=== PATIENT | male | born 1940 | race Caucasian/White ===

== ENCOUNTER → 2017-08-23 | Outpatient (CLI) | payer MEDICARE ==
[2017-08-23 13:35] LABS: Blood Urea Nitrogen 25 mg/dL (9-20)
--- NOTE | 2017-08-23 15:30 | CT ---
EXAMINATION TYPE: CT angio thoracic/abd aorta DATE OF EXAM: 08/23/2017 COMPARISON: NONE HISTORY: Follow up evaluation of aortic aneurysms, ascending and abdominal CT DLP: 937.6 mGycm. Automated Exposure Control for Dose Reduction was Utilized. CONTRAST: CT scan of the thorax, abdomen and pelvis is performed with IV Contrast, patient injected with 100 mL of Isovue 370. 3-D reformats were performed at a separate workstation of the vasculature. FINDINGS: LUNGS: Lung apices are not imaged. The previously seen 3 mm right upper lobe subpleural pulmonary nod ule is no longer present and may have represented atelectasis or pneumonitis. Similarly the previousl y seen 2 mm nodule within the right upper lobe is also no longer present. There is stability of the 3 mm pulmonary nodule on series 8 image 27 within the left lower lobe. No new pulmonary nodules are se en. No focal consolidation is noted. Scattered areas of subsegmental atelectasis are present.. Ther e is no pleural effusion or pneumothorax seen. The tracheobronchial tree is patent. MEDIASTINUM: Aortic root just above the sinotubular junction has enlarged in the interim, now measuri ng 4.4 cm on series 15 image 35 and previously measuring 4.1 cm. Aortic valvular replacement is noted . Ascending thoracic aorta measures slightly less than on the prior exams measuring 4.4 cm currently, possibly due to obliquity as this previously measured up to 4.6 cm on the prior exams of 12/25/2015 an d 03/25/2017. No interval enlargement. There are no greater than 1 cm hilar or mediastinal lymph nodes . No pericardial effusion is seen. Moderate coronary artery calcifications are again noted. Sterno lisette wires are seen. OTHER: No additional significant abnormality is seen. LIVER/GB: Gallbladder is contracted containing numerous gallstones. Liver is demonstrates diffuse hyp oattenuation thickening criteria for mild hepatic steatosis. This limits evaluation for pancreatic ma sses as does the angiographic phase of contrast. Focal hypoattenuated 6 mm hepatic lesion is seen on the border of segment 8 on series 7 image 40. This does not appear to be present on the prior exam. PANCREAS: There is new prominence of the pancreatic head where is the remainder the pancreatic head i nferiorly and uncinate process demonstrate mild atrophy. This is seen on series 7 image 52 and subopt imally evaluated due to angiographic phase of contrast. This prominence measures approximately 3.3 x 3.3 cm and does not result in pancreatic dilatation although there are scattered prominent. Pancreati c lymph nodes. Therefore interval development of findings are concerning for pancreatic mass and furt her evaluation is necessary. SPLEEN: No significant abnormality is seen. ADRENALS: Stable left 8 mm area of nodularity seen within the lateral limb of the left adrenal gland slight nodularity on the right again likely related to adrenal gland hyperplasia without greater than 1 cm nodule. KIDNEYS: Right upper pole renal cyst measures 3.2 cm. Smaller right lower pole renal cyst measures 1 cm. Probable additional too small to accurately characterize right upper pole renal hypoattenuating l esion measures 6 mm. No hydronephrosis. Left kidney is unremarkable. BOWEL: Scattered colonic diverticula are noted. No bowel enlargement. LYMPH NODES: No greater than 1cm abdominal or pelvic lymph nodes are appreciated. OSSEOUS STRUCTURES: Mild multilevel degenerative changes of the thoracolumbar and lumbosacral spine. OTHER: Fusiform infrarenal abdominal aortic aneurysm is unchanged measuring 4.3 x 4.0 x 5.8 cm and an terior posterior by transverse by craniocaudal dimension, previously measuring 4.3 x 4.0 x 5.8 cm. Th ere is no extent into the common iliac arteries as well as the left common iliac artery measures 1.5 cm and the right measures 1.1 cm. There is moderate calcific and noncalcific atheromatous plaquing of the abdominal aorta and its branches. Celiac axis, renal arteries, SMA, and AMY are patent. IMPRESSION: 1. Interval enlargement of the aortic root dilatation now measuring 4.4 cm and previously measuring 4 .1 cm. No interval enlargement of the ascending thoracic aortic aneurysm. 2. Findings concerning for potential underlying new pancreatic head mass with surrounding adenopathy. Further evaluation with dynamic enhanced three-phase CT abdomen (pancreatic mass protocol) or MR is recommended. 3. Stable infrarenal fusiform abdominal aortic aneurysm measuring 4.3 x 4.0 x 5.8 cm without extensio n into the common iliac arteries. 3. Resolution of two of the previously seen subcentimeter pulmonary nodules, possibly related to atel ectasis or pneumonitis. Solitary 3 mm left lower lobe pulmonary nodule is unchanged and can be reasse ssed in one year.
== END | disposition home or self-care (01) ==
LOC: RADCTMAIN 12:55
PROVIDERS: ATTEND Internal Medicine Interventional Cardiology
DX: I77.811 Abdominal aortic ectasia (principal); R91.1 Solitary pulmonary nodule
CPT/HCPCS: 82565; 84520; 75635; 71275; 36415; Q9967

== ENCOUNTER → 2017-10-08 | Outpatient (CLI) | payer MEDICARE ==
[2017-10-08 14:49] LABS: HCT 42.2 % (39.0-53.0); HGB 14.2 gm/dL (13.0-17.5); MCH 28.7 pg (25.0-35.0); MCHC 33.8 g/dL (31.0-37.0); MCV 84.9 fL (80.0-100.0); Mean Platelet Volume 6.8; Platelet Count 338 k/uL (150-450); RBC 4.97 m/uL (4.30-5.90); WBC 11.7 k/uL (3.8-10.6)
[2017-10-08 14:53] LABS: Calcium 11.4 mg/dL (8.4-10.2); Potassium 4.2 mmol/L (3.5-5.1); Total Bilirubin 0.6 mg/dL (0.2-1.3); Total Protein 6.8 g/dL (6.3-8.2)
[2017-10-08 21:05] LABS: Cancer Antigen 19-9 >70000.0 U/mL (0.0-34.9)
== END | disposition home or self-care (01) ==
LOC: LABWHC1 13:32
PROVIDERS: ATTEND Surgery
DX: K86.9 Disease of pancreas, unspecified (principal)
CPT/HCPCS: 36415; 80053; 82378; 85027; 86301

== ENCOUNTER → 2017-10-16 | Outpatient (CLI) | payer MEDICARE ==
--- NOTE | 2017-10-17 13:16 | PE ---
Nuclear medicine PET/CT HISTORY: Abnormal findings of liver on diagnostic imaging Patient received 9.8 mCi F-18 FDG intravenously in delayed scanning was performed from the skull base to the mid thighs. Localization and attenuation correction CT scan was performed. Correlation to CT dated 08/23/2017 Neck and chest: There is no evident cervical adenopathy. No hypermetabolic uptake within the neck. Th ere is no evident lung mass. There is a right pleural effusion present. No mediastinal, axillary, or hilar adenopathy. Ascending aorta is dilated. Internal mammary node suspected on the right adjacent t o sternotomy, SUV 4.4, not enlarged ABDOMEN and pelvis: Multiple foci of hypermetabolic uptake are scattered within the liver, SUV approx imately 5-8. There are nodes present just inferior to the heart which show associated hypermetabolic uptake with SUV approximately 5-7, scattered soft tissue foci are present within the abdomen, along t he left hemidiaphragm anteriorly showing associated hypermetabolic uptake, SUV to 3. Focus of hyperme tabolic uptake also noted along the pancreas, suspect there is a pancreatic mass measuring 3 cm withi n the tail with associated hypermetabolic uptake, SUV 6.8. Pancreatic head also shows a soft tissue m ass with associated hypermetabolic uptake measuring 4.3 cm, SUV 9 Dependent high attenuation within t he gallbladder compatible with stones. Abnormal increased soft tissue attenuation is present which is developed in the interval compatible w ith omental caking, there is associated hypermetabolic uptake at these areas, SUV 3. Soft tissue mass es associated with the colon with associated hypermetabolic uptake on axial image 181 in the right lo wer quadrant, SUV 8.3. There is some free fluid in the pelvis. Prostate is markedly enlarged. There i s a focus of hypermetabolic uptake associated with the posterior aspect of the prostate, SUV 6.1. No evident inguinal adenopathy. Osseous structures: No suspicious hypermetabolic uptake. IMPRESSION: Metastatic disease. Disease has progressed in the interval.
== END | disposition home or self-care (01) ==
LOC: RADPETMAIN 14:00
PROVIDERS: ATTEND Nurse Practitioner Family
DX: C76.2 Malignant neoplasm of abdomen (principal)
CPT/HCPCS: 78815; A9552

== ENCOUNTER 2017-10-28 16:01 | Emergency (ER) | payer MEDICARE ==
[2017-10-28 16:18] VITALS: TEMP 98.5
[2017-10-28] MEDS ORDERED: PHYTONADIONE ORAL 5 MG/5 ML ORAL.SYRG PO STA (17:20)
--- NOTE | 2017-10-28 17:22 | ED ---
General Adult HPI - General Chief complaint: Recheck/Abnormal Lab/Rx Stated complaint: sent by -lab recheck Time Seen by Provider: 10/28/17 16:22 Source: patient, family, RN notes reviewed Mode of arrival: wheelchair Limitations: no limitations - History of Present Illness Initial comments: Patient is a pleasant 77-year-old male presenting to the emergency department with coagulopathy. Patient is on vitamin K for known mechanical heart valve. Patient is in the process of having a biopsy done of his pancreas and liver. Patient has not been eating quite as well as normal. 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 Patient denies any bleeding. No dark tarry stools. Patient has recently had his Coumadin held and restarted. Patient has no acute complaints. - Related Data Home Medications Medication Instructions Recorded Confirmed Hydrochlorothiazide 25 mg PO DAILY 06/15/15 10/28/17 Multivitamin [Men's Multi-Vitamin] 1 tab PO DAILY 06/15/15 10/28/17 Travoprost [Travatan Z 0.004%] 1 drop BOTH EYES DAILY 06/15/15 10/28/17 Warfarin Sodium [Coumadin] 5 mg PO SUMOWEFR 06/15/15 10/28/17 Warfarin [Coumadin] 7.5 mg PO TUTHSA 06/15/15 10/28/17 Atorvastatin [Lipitor] 20 mg PO HS 10/28/17 10/28/17 Fenofibrate 160 mg PO HS 10/28/17 10/28/17 HYDROcodone/APAP 7.5-325MG [[place] 1 tab PO QID PRN 10/28/17 10/28/17 7.5-325] Ondansetron HCl [Zofran] 8 mg PO TID PRN 10/28/17 10/28/17 Polyethylene Glycol 3350 [Miralax] 17 gm PO DAILY 10/28/17 10/28/17 Valsartan 320 mg PO HS 10/28/17 10/28/17 busPIRone HCL 15 mg PO BID 10/28/17 10/28/17 Previous Rx's Medication Instructions Recorded Carvedilol [Coreg] 3.125 mg PO BID-W/MEALS #60 tab 06/18/15 amLODIPine [Norvasc] 10 mg PO DAILY #30 tab 06/18/15 Allergies Allergy/AdvReac Type Severity Reaction Status Date / Time oxytetracycline HCl Allergy Rash/Hives Verified 10/28/17 16:42 [From Terramycin with Polymyxin B] polymyxin B sulfate Allergy Rash/Hives Verified 10/28/17 16:42 [From Terramycin with Polymyxin B] vitamin K2 AdvReac Unknown BLEEDING Verified 10/28/17 16:42 Review of Systems ROS Statement: Those systems with pertinent positive or pertinent negative responses have been documented in the HPI. ROS Other: All systems not noted in ROS Statement are negative. Constitutional: Denies: fever Eyes: Denies: eye pain ENT: Denies: ear pain Respiratory: Denies: cough Cardiovascular: Denies: chest pain Endocrine: Denies: fatigue Gastrointestinal: Reports: other (Patient has decreased appetite and loose stools attributed to his pancreas and liver problems.). Denies: vomiting Genitourinary: Denies: dysuria Musculoskeletal: Denies: back pain Skin: Denies: rash Past Medical History Past Medical History: Heart Failure, Hypertension History of Any Multi-Drug Resistant Organisms: None Reported Past Surgical History: Cardiac Valve Replacement Past Psychological History: No Psychological Hx Reported Smoking Status: Former smoker Past Alcohol Use History: None Reported Past Drug Use History: None Reported - Past Family History Mother Additional Family Medical History / Comment(s): in childbirth. Heart valve issues General Exam Limitations: no limitations General appearance: alert, in no apparent distress Head exam: Present: atraumatic Eye exam: Present: normal appearance, PERRL ENT exam: Present: normal oropharynx Neck exam: Present: normal inspection Respiratory exam: Present: normal lung sounds bilaterally Cardiovascular Exam: Present: regular rate, normal rhythm GI/Abdominal exam: Present: soft. Absent: tenderness Extremities exam: Present: normal inspection Neurological exam: Present: alert Psychiatric exam: Present: normal affect, normal mood Skin exam: Present: normal color. Absent: petechiae Course Vital Signs 10/28/17 16:13 Temperature 98.5 F Pulse Rate 73 Respiratory 18 Rate Blood Pressure 110/68 O2 Sat by Pulse 94 L Oximetry Disposition Clinical Impression: Coagulopathy Disposition: HOME SELF-CARE Condition: Stable Instructions: Hypercoagulation (ED) Additional Instructions: Hold Coumadin until further advised by Dr. Marie. Please call Dr. Marie tomorrow for further follow-up and further evaluation of Coumadin level. He will need to have level drawn in the next couple of days. Return for any bleeding, black tarry stools, worsening symptoms or any other concerns. Is patient prescribed a controlled substance at d/c from ED?: No Referrals: Elysia Enciso DO [Primary Care Provider] - 1-2 days Time of Disposition: 17:22
[2017-10-28 17:48] VITALS: BP 108/70; PULSE 70; RESP 16
== END 2017-10-28 17:47 | disposition home or self-care (01) ==
LOC: EC 16:01
DX: D68.9 Coagulation defect, unspecified (principal); I11.0 Hypertensive heart disease with heart failure; I50.9 Heart failure, unspecified; Z87.891 Personal history of nicotine dependence; Z79.01 Long term (current) use of anticoagulants; Z79.899 Other long term (current) drug therapy; Z88.1 Allergy status to other antibiotic agents; Z88.8 Allergy status to other drugs, medicaments and biological substances; Z95.2 Presence of prosthetic heart valve
CPT/HCPCS: 99283

== ENCOUNTER → 2017-10-28 | Outpatient (CLI) | payer MEDICARE ==
[2017-10-28 11:18] LABS: Prothrombin Time >130.0 sec (9.0-12.0)
[2017-10-28 11:19] LABS: INR >10.0 (<1.2)
== END | disposition home or self-care (01) ==
LOC: LABWHC1 10:04
PROVIDERS: ATTEND Internal Medicine Interventional Cardiology
DX: Z48.812 Encounter for surgical aftercare following surgery on the circulatory system (principal); Z95.2 Presence of prosthetic heart valve
CPT/HCPCS: 36415; 85610